=== PATIENT | female | born 1970 | race Caucasian/White ===

== ENCOUNTER 2019-04-01 09:09 | Day surgery (SDC) | payer OTHER ==
[2019-04-05] MEDS ORDERED: FENTAnyl 50 MCG/ML VIAL (10:02)
[2019-04-05] MEDS ORDERED: PROPOFOL 20 ML ×2 (10:02→11:01)
== END 2019-04-05 16:02 | disposition home or self-care (01) ==
LOC: GIL 09:09
DX: D12.5 Benign neoplasm of sigmoid colon (principal); K64.8 Other hemorrhoids; K29.50 Unspecified chronic gastritis without bleeding; D12.2 Benign neoplasm of ascending colon
CPT/HCPCS: 43239; 84703; 88305; 88312